=== PATIENT | male | born 1995 | race Caucasian/White ===

== ENCOUNTER 2022-07-25 19:01 | Emergency (ER) | payer OTHER, SELFPAY ==
[2022-07-25 19:07] VITALS: BP 142/70; PULSE 95; RESP 18; TEMP 36.9; O2SAT 99; BMI 25.8
--- NOTE | 2022-07-25 19:23 | ED.ANIMALBIT ---
HPI - Animal Bite General Time Seen by Provider: 19:24 Date Seen: 07/25/22 Chief Complaint: Animal Bite Stated Complaint: Bite from dog and cat on finger Time Seen by Provider: 07/25/22 19:08 Source: patient and RN notes reviewed Mode of arrival: ambulatory Limitations: no limitations History of Present Illness HPI narrative: Patient is a 27-year-old male coming in with complaint of left 4th finger pain. He was better scratch in his 2nd digit is well but it is not painful. The left 4th finger definitely had a puncture wound from the cat's mouth. He felt the cat bite his finger. He was of fight from his dog with his mom's cat. He was visiting, a dog came with, he has 2 other cats in this dog is friendly with them. Unfortunately his mom's cat in his dog obviously are not friendly. Animal and patient immunizations are reported to be up-to-date. MD complaint: animal bite Related Data Patient tetanus UTD: Yes (09/20/2020) Previous Rx's Medication Instructions Recorded doxycycline monohydrate 100 mg 100 mg PO BID #13 tabs 07/25/22 tablet metronidazole 500 mg tablet 500 mg PO TID #20 tabs 07/25/22 Allergies Allergy/AdvReac Type Severity Reaction Status Date / Time cephalexin [From Keflex] Allergy Mild Hives Verified 07/25/22 19:11 Penicillins Allergy Mild Hives Verified 07/25/22 19:11 Review of Systems Narrative: As per HPI [facility] Medical History (Updated 07/25/22 @ 19:42 by Alivia Zuniga MD) No significant past medical history Surgical History (Updated 07/25/22 @ 19:14 by Montez Ellison RN) H/O shoulder surgery Social History Smoking Status: Never smoker Do you use any of these nicotine containing products: None Second hand tobacco smoke exposure: No How often do you have a drink containing alcohol: never How often do you have six or more drinks on one occasion: Never AUDIT-C Alcohol total score: 0 Non-prescribed substance use: denies use Exam Const: Vital Signs, click to edit/add: Vital Signs - 24 hr 07/25/22 19:07 Temperature 98.5 F Pulse Rate [Right Pulse Oximeter] 95 Respiratory Rate 18 Blood Pressure [Ri ght Upper Arm] 142/70 H Pulse Oximetry 99 Oxygen Delivery Me thod Room Air Documenting provider has reviewed patient's vital signs: yes Common normals: no apparent distress, average body habitus, oriented x3, no limitations, healthy appearing, alert and well nourished Cardio: Common normals: regular rate, regular rhythm, S1 normal heart sound, S2 normal heart sound, no gallops, no clicks and no murmurs Rate: regular rate Rhythm: regular rhythm Heart sounds: S1 normal and S2 normal Extremity: Other: Has some scratches over his 2nd and 4th digits on the dorsal surface. What is most painful to him is an obvious puncture wound juxtaposed along the medial nail bed of his left 4th finger. He has full range of motion of his finger. There is a little bleeding from this wound. Nail bed looks normal at this time. Neuro: Common normals: oriented x3 Sensorium/orientation: alert Course Course Hospital Course: Did review current up-to-date indications for antibiotic prophylaxis as well as prophylaxis when penicillin allergic. Hands are 1 of the injuries noted to have higher incidence of infection. Did review with the patient given his penicillin allergy, would need to use 2 classes of antibiotics to cover the pathogens that can be transmitted with cat bites. If for some chance there is injury from dog bite, coverage would be the same. Vital Signs Vital signs: Initial Vital Signs Temperature 98.5 F 07/25/22 19:07 Temperature Source Temporal Artery Scan 07/25/22 19:07 Pulse Rate 95 07/25/22 19:07 Respiratory Rate 18 07/25/22 19:07 Blood Pressure 142/70 H 07/25/22 19:07 Blood Pressure Mean 94 07/25/22 19:07 Blood Pressure Position Sitting 07/25/22 19:07 Pulse Oximetry 99 07/25/22 19:07 Oxygen Delivery Method 07/25/22 19:07 Vital Signs Temperature 98.5 F 07/25/22 19:07 Pulse Rate 95 07/25/22 19:07 Respiratory Rate 18 07/25/22 19:07 Blood Pressure 142/70 H 07/25/22 19:07 Pulse Oximetry 99 07/25/22 19:07 Oxygen Delivery Method 07/25/22 19:07 Temperature 98.5 F 07/25/22 19:07 Pulse Rate 95 07/25/22 19:07 Respiratory Rate 18 07/25/22 19:07 Blood Pressure 142/70 H 07/25/22 19:07 Pulse Oximetry 99 07/25/22 19:07 Oxygen Delivery Method 07/25/22 19:07 MDM - Animal Bite Differential Diagnosis Differential diagnosis: Likely cat bite Critical Care Time Critical Care Time Critical Care Time: No Discharge Plan Discharge Clinical Impression: Cat bite Condition: Stable Instructions: Animal Bite (ED) Additional Instructions: Next dose antibiotics are due tomorrow morning, take the doxycycline and the metronidazole as prescribed. Would recommend icing and elevating this hand tonight certainly, ongoing if your still having some significant pain over the next few days. Can use Tylenol and/or ibuprofen per bottle directions as needed for pain. If you should develop concern of infection as reviewed, need to be re-evaluated. Activity Level: Activity as Tolerated Prescriptions: New doxycycline monohydrate 100 mg tablet 100 mg PO BID Qty: 13 0RF metronidazole 500 mg tablet 500 mg PO TID Qty: 20 0RF Stand Alone Forms: MyHealth Info Instructions
[2022-07-25] MEDS: metroNIDAZOLE 500 MG TABLET PO (19:48)
[2022-07-25] MEDS: DOXYCYCLINE HYCLATE 100 MG CAPSULE PO (19:50)
[2022-07-25 19:59] VITALS: BP 135/74; PULSE 89; RESP 18; TEMP 36.6; O2SAT 99
[2022-07-25 20:00] VITALS: BP 135/74; PULSE 89; RESP 18; TEMP 36.6
== END 2022-07-25 20:00 | disposition home or self-care (01) ==
LOC: ED 19:50
PROVIDERS: Emergency Provider Family Medicine
DX: S61.255A Open bite of left ring finger without damage to nail, initial encounter (principal); W55.01XA Bitten by cat, initial encounter
CPT/HCPCS: 99282; 99283; A9270